=== PATIENT | male | born 1955 | race Caucasian/White ===

== ENCOUNTER → 2018-04-28 | Outpatient (CLI) | payer BC ==
--- NOTE | 2018-04-28 13:55 | CARD ---
MR#: [id number] Date of Study: 04/28/2018 Ordering Physician: NIRAV JACKSON, Referring Physician: NIRAV JACKSON, Tech: REYNALDO Oscar APPROVED REPORT EXAM: Two-dimensional and M-mode echocardiogram with Doppler and color Doppler. Other Information Quality : Technically Difficult Technically limited study due to body habitus. INDICATION CAD CABGx3-2015 2D DIMENSIONS Left Atrium(2D)4.7 (1.6-4.0cm)IVSd1.2 (0.7-1.1cm) Aortic Root(2D)3.3 (2.0-3.7cm)LVDd5.1 (3.9-5.9cm) LVOT Diameter2.6 (1.8-2.4cm)PWd1.5 (0.7-1.1cm) LVDs3.7 (2.5-4.0cm)FS (%) 27.5 % SV65.5 mlLVEF(%)53.1 (>50%) Aortic Valve AoV Peak John.93.5cm/Ambrose Peak GR.3.5mmHg LVOT Peak John.65.6cm/sAVA (VMAX)3.75cm2 Mitral Valve MV E Cjykaoet41.7cm/sMV DECEL [id number] MV A Ipaimetd24.2cm/sE/A Ratio0.7 Tricuspid Valve RAP [id number] LEFT VENTRICLE The left ventricle is normal size. There is mild left ventricular hypertrophy. The left ventricular s ystolic function is normal and the ejection fraction is within normal range. The Ejection Fraction is 50-55%. There is normal LV segmental wall motion. Septal motion consistent with post-operative state . Tissue Doppler imaging reveals mild left ventricular diastolic dysfunction. RIGHT VENTRICLE The right ventricle is normal size. There is normal right ventricular wall thickness. The right ventr icular systolic function is normal. ATRIA The left atrium is mildly dilated. The right atrium is borderline dilated. The interatrial septum is intact with no evidence for an atrial septal defect or patent foramen ovale as noted on 2-D or Dopple r imaging. AORTIC VALVE The aortic valve is trileaflet. Doppler and Color Flow revealed trace aortic regurgitation. There is no significant aortic valvular stenosis. MITRAL VALVE The mitral valve is mildly thickened. There is no mitral valve stenosis. Doppler and Color-flow revea led mild mitral regurgitation. TRICUSPID VALVE The tricuspid valve is normal in structure and function. Doppler and Color Flow revealed trace tricus pid regurgitation. There is no tricuspid valve stenosis. PULMONIC VALVE The pulmonic valve is not well visualized. Doppler and Color Flow revealed trace pulmonic valvular re gurgitation. There is no pulmonic valvular stenosis. GREAT VESSELS The aortic root is normal in size. The IVC is normal in size and collapses >50% with inspiration. PERICARDIAL EFFUSION There is no pleural effusion. There is no evidence of significant pericardial effusion. Critical Notification Critical Value: No <Conclusion> The left ventricular systolic function is normal and the ejection fraction is within normal range. Th e Ejection Fraction is 50-55%. There is normal LV segmental wall motion. Septal motion consistent with post-operative state. Signed by : Phoenix Fermin, Electronically Approved : 04/28/2018 13:54:58
--- NOTE | 2018-04-30 09:42 | RAD ---
MR#: [id number] Date of Study: 04/28/2018 Ordering Physician: NIRAV JACKSON, Referring Physician: NIRAV JACKSON, Tech: Ember Ta RDMS, RVT, RTR APPROVED REPORT Patient Location: OUT-PATIENT Laterality:Bilateral Indications Bruit Grayscale images of the left common carotid, internal and external carotid vessels reveal mild diffus e atherosclerosis without any focal high-grade stenosis. Color Doppler and spectral images of the ext ernal, internal and common carotid vessels do not reveal any high-grade stenosis, overall approximate ly 0 to less than 50% stenosis by ultrasound criteria. Of note the left vertebral artery on multiple measurements reveals retrograde flow suggestive perhaps of proximal subclavian disease. Grayscale images of the right common carotid, internal and external carotid vessels reveal mild diffu se atherosclerosis with a 50% stenosis on stark scale images involving the proximal ICA. Color Doppler and spectral images of the ICA suggest overall 0 to less than 50% stenosis. The right external carot id artery on color Doppler and spectral imaging suggest greater than 50% stenosis. The right vertebra l velocities are antegrade and fashion. Peak common carotid velocity on the right side is 94 cm/s, left side 121 7 m/s. Peak internal carotid artery velocity on the right side is 108 cm/s and 71 cm/s on the left. Peak external carotid velocity on the right is 320 cm/s and on the left is 128 cm/s. Critical Notification Critical Value: No <Conclusion> 1. No significant high-grade internal carotid arterial stenosis. 2. Probable greater than 50% stenosis involving the right external carotid artery. 3. Retrograde left vertebral velocity suggestive of subclavian stenosis on the left side, correlate c ushaically. Signed by : Phoenix Fermin, Electronically Approved : 04/30/2018 09:41:38
--- NOTE | 2018-04-30 09:45 | RAD ---
MR#: [id number] Date of Study: 04/28/2018 Ordering Physician: NIRAV JACKSON, Referring Physician: NIRAV JACKSON, Tech: Ember Ta RDMS, RVT, RTR APPROVED REPORT Patient Location: OUT-PATIENT Indications Grayscale images of the bilateral lower extremity arterial vessels reveal mild diffuse atheroscleroti c plaque. Spectral waveforms are mostly biphasic throughout the lower extremity arteries. No signific ant velocity acceleration or deceleration is noted from the common femoral artery to the below-knee v essels bilaterally. There is three-vessel runoff bilaterally. Critical Notification Critical Value: No <Conclusion> No high-grade flow-limiting stenosis is identified in the lower extremity arterial vessels. Three-vessel runoff in the bilateral lower extremities. Signed by : Phoenix Fermin, Electronically Approved : 04/30/2018 09:44:05
== END | disposition home or self-care (01) ==
LOC: US 09:50
PROVIDERS: ATTEND Internal Medicine Cardiovascular Disease
DX: I25.10 Atherosclerotic heart disease of native coronary artery without angina pectoris (principal); I70.293 Other atherosclerosis of native arteries of extremities, bilateral legs; I34.0 Nonrheumatic mitral (valve) insufficiency; I51.7 Cardiomegaly
CPT/HCPCS: 93306; 93880; 93925